=== PATIENT | female | born 1995 | race Caucasian/White ===

== ENCOUNTER 2016-05-06 01:26 | Emergency (ER) | payer OTHER ==
[~2016-05-06] VITALS: Ht 154.9 cm; Wt 61.2 kg
[~2016-05-06 01:26] MED LIST: CALCIUM 500 +1 EAC5 PO; HYDROCODONE-AP1 EAC6 PO; IBUPROFEN 600600 M1 PO; KARIVA 28 DAY1 EACH PO; NORCO 5-325 TA1 EACH PO; NORFLEX100 MG PO; ONCE DAILY1 EAC1 PO; ZYRTEC10 MG
[2016-05-06 02:55] LABS: HEMATOCRIT 39.2 % (37.0-47.0); HEMOGLOBIN 12.8 gm/dL (12.0-15.0); MCH 27.3 pg (26.0-34.0); MCHC 32.7 % (28.0-37.0); MCV 83.4 fL (80.0-100.0); PLATELET COUNT 214 thou/uL (150-400); RDW 15.5 % (10.5-14.5); WBC 13.5 thou/uL (4.0-11.0)
[2016-05-06 02:56] LABS: MANUAL DIFF YES
[2016-05-06 03:06] LABS: CALCIUM 8.2 mg/dL (8.5-10.1); CREATININE 0.6 mg/dL (0.6-1.3)
[2016-05-06] MEDS ORDERED: ZOFRAN ODT4 MG PO (03:11)
[2016-05-06 03:45] VITALS: BP 106/54
[2016-05-06 04:18] LABS: ANISOCYTOSIS SLIGHT; TOTAL CELL COUNT 100
== END 2016-05-06 03:49 | disposition home or self-care (01) ==
LOC: ER 01:26
PROVIDERS: Emergency Medicine
DX: R10.84 Generalized abdominal pain (principal); R11.2 Nausea with vomiting, unspecified; R19.7 Diarrhea, unspecified; Z98.890 Other specified postprocedural states; F10.99 Alcohol use, unspecified with unspecified alcohol-induced disorder

== ENCOUNTER 2019-09-24 21:03 | Emergency (ER) | payer OTHER ==
[~2019-09-24] VITALS: Ht 157.5 cm; Wt 72.6 kg
[~2019-09-24 21:03] MED LIST changes: +ZOFRAN ODT4 MG PO
[2019-09-24] MEDS ORDERED: ADDERALL XR 2020 MG PO (21:13)
[2019-09-24] MEDS ORDERED: ADDERALL 10 MG10 MG PO (21:13)
[2019-09-24 21:57] LABS: ABSOLUTE NEUTROPHILS 5.8 thou/uL (1.4-8.2); BASOPHILS 0.6 % (0.0-2.0); EOSINOPHILS 6.1 % (0.0-3.0); HEMATOCRIT 38.6 % (37.0-47.0); HEMOGLOBIN 13.4 gm/dL (12.0-15.0); LYMPHOCYTES 24.9 % (24.0-44.0); MCH 32.8 pg (26.0-34.0); MCHC 34.7 g/dL (28.0-37.0); MCV 94.5 fL (80.0-100.0); MONOCYTES 10.2 % (1.0-8.0); PLATELET COUNT 269 thou/uL (150-400); POLYS 58.2 % (36.0-66.0); RBC 4.09 mil/uL (4.20-5.00); RDW 12.9 % (10.5-14.5)
[2019-09-24 22:07] LABS: ANION GAP 7 mmol/L (7-16); BUN 8 mg/dL (7-18); CALCIUM 8.6 mg/dL (8.5-10.1); CHLORIDE 100 mmol/L (98-107); CO2 29 mmol/L (21-32); CREATININE 0.7 mg/dL (0.6-1.0); GLUCOSE 77 mg/dL (74-106); POTASSIUM 3.3 mmol/L (3.5-5.1); SODIUM 136 mmol/L (136-145)
[2019-09-24 22:17] LABS: ALBUMIN 4.1 g/dL (3.4-5.0); SGOT 26 U/L (15-37); SGPT 27 U/L (30-65); TOTAL BILIRUBIN 0.4 mg/dL (0.2-1.0); TOTAL PROTEIN 7.3 g/dL (6.4-8.2); TROPONIN-I <0.06 ng/mL (<0.06)
[2019-09-24 23:31] LABS: URINE BILIRUBIN NEGATIVE (Negative); URINE BLOOD NEGATIVE (Negative); URINE CLARITY CLEAR; URINE COLOR YELLOW; URINE GLUCOSE-RANDOM* NEGATIVE (Negative); URINE KETONES NEGATIVE (Negative); URINE LEUKOCYTES-REFLEX NEGATIVE (Negative); URINE NITRITE-REFLEX NEGATIVE (Negative); URINE PROTEIN (DIPSTICK) NEGATIVE (Negative); URINE SPECIFIC GRAVITY 1.015 (1.005-1.035); URINE UROBILINOGEN 0.2 E.U./dl (0.2-1.0)
[2019-09-25 00:17] VITALS: BP 130/71
--- NOTE | 2019-09-25 08:28 | EKG ---
[facility] [place] [address] ELECTROCARDIOGRAM REPORT Name: APOLINAR EDWARD Room #: DEP [facility]#: [id number] Admission: 09/24/19 Attend Phys: Discharge: 09/25/19 Date of : 89 Report #: [id number] THIS REPORT FOR: cc: FAM - Family physician unknown FAM - Family physician unknown Jt Samuel MD [facility] THIS REPORT FOR: //name// [facility] ED Test Date: 2019-09-24 Test Time: 21:26:00 Pat Name: APOLINAR EDWARD Department: Room: Gender: Telephone Order Dispatcher: [facility] : 1995 Requested By: José Antonio Chapman Order Number: [id number] MD: Jt Samuel Measurements Intervals Ware Rate: 94 P: 40 MA: 114 QRS: 24 QRSD: 76 T: 39 QT: 351 QTc: 439 Interpretive Statements Sinus rhythm Normal tracing No previous ECG available for comparison Electronically Signed On 09-25-2019 8:26:46 CDT by Jt Samuel [email or web address] <ELECTRONICALLY SIGNED> By: Jt Samuel MD, [facility] 09/25/19 0826 D: 05/2125 25 Jt Samuel MD, FACC /EPI
== END 2019-09-25 00:15 | disposition home or self-care (01) ==
LOC: ER 21:03
PROVIDERS: Emergency Medicine
DX: R42 Dizziness and giddiness (principal); J45.909 Unspecified asthma, uncomplicated; Z79.899 Other long term (current) drug therapy; Z90.49 Acquired absence of other specified parts of digestive tract